=== PATIENT | male | born 1935 | race Caucasian/White ===

== ENCOUNTER 2017-04-21 08:59 | Emergency (ER) | payer MEDICARE ==
[~2017-04-21 08:59] MED LIST: ACCU20 PO; ALLEGRA180 PO; AMB10 PO; AT25 PO; CELEXA20 PO; CELEXA40 MG PO; FORTAMET500 MG PO; GLUCOPHAGE1000 MG PO; GLUCPH PO; HYDROCHLOROTHIAZIDE PO; JANUVIA100 MG PO; LORTAB 5 PO; LUNESTA3 MG PO; MULTIVITAMI1 PO; NEUR600 PO; PLAVIX PO; PRILOSEC40 MG PO; PROVIGIL2 PO; QUINAPRIL PO; STARLIX120 PO; VYTORIN 10/40 T1 TAB PO; XANAX1 MG PO; ZOCOR20 PO
== END 2017-04-21 11:55 | disposition home or self-care (01) ==
LOC: ER 08:59
DX: S61.412A Laceration without foreign body of left hand, initial encounter (principal); S51.812A Laceration without foreign body of left forearm, initial encounter; S40.012A Contusion of left shoulder, initial encounter; S70.02XA Contusion of left hip, initial encounter; I10 Essential (primary) hypertension; E11.9 Type 2 diabetes mellitus without complications; G20 Parkinson's disease; Z86.73 Personal history of transient ischemic attack (TIA), and cerebral infarction without residual deficits; Z95.1 Presence of aortocoronary bypass graft; Z88.8 Allergy status to other drugs, medicaments and biological substances; Z79.84 Long term (current) use of oral hypoglycemic drugs; Z79.899 Other long term (current) drug therapy; W20.8XXA Other cause of strike by thrown, projected or falling object, initial encounter
CPT/HCPCS: 73030-RT; 73502-RT; 99284

== ENCOUNTER 2017-04-27 14:41 | Emergency (ER) | payer MEDICARE | END 2017-04-27 18:45 | disposition home or self-care (01) | LOC: ER 14:41 | PROC: 0HQ1XZZ Repair Face Skin, External Approach (ICD-10-PCS; principal; 2017-04-27) | DX: S01.111A Laceration without foreign body of right eyelid and periocular area, initial encounter (principal); I10 Essential (primary) hypertension; F32.9 Major depressive disorder, single episode, unspecified; Z95.1 Presence of aortocoronary bypass graft; Z88.8 Allergy status to other drugs, medicaments and biological substances; Z86.73 Personal history of transient ischemic attack (TIA), and cerebral infarction without residual deficits; Z79.84 Long term (current) use of oral hypoglycemic drugs; Z79.899 Other long term (current) drug therapy; W19.XXXA Unspecified fall, initial encounter | CPT/HCPCS: 70450; 99284 ==